=== PATIENT | male | born 1955 | race Caucasian/White ===

== ENCOUNTER 2023-07-10 08:59 | Emergency (ER) | payer MEDICARE, OTHER, SELFPAY ==
[2023-07-10 09:07] VITALS: BP 168/96; PULSE 73; RESP 16; TEMP 37.1; O2SAT 98; BMI 27.1
--- NOTE | 2023-07-10 09:07 | DI.RAD.S_ITS ---
PROCEDURE: XR KNEE LT 3V INDICATIONS: fall TECHNIQUE: 3 views of the knee were acquired. COMPARISON: None. FINDINGS: Bones: No displaced fracture or dislocation. Degenerative changes, particularly at the patellofemoral compartment with lateral patellar tilt. Soft tissues: Possible joint effusion and prepatellar soft tissue swelling. Extensor mechanism enthesopathy. IMPRESSION: No acute displaced fracture or dislocation. Mild degenerative changes. Extensor mechanism enthesopathy. Possible joint effusion and soft tissue swelling in the prepatellar space. Slight lateral patellar tilt. If there is high concern for further derangement, consider MRI evaluation. Dictated by: Paolo García M.D. on 07/10/2023 at 11:00 Approved by: Paolo García M.D. on 07/10/2023 at 11:01
--- NOTE | 2023-07-10 09:07 | DI.RAD.S_ITS ---
PROCEDURE: XR KNEE RT 3V INDICATIONS: fall TECHNIQUE: 3 views of the knee were acquired. COMPARISON: None. FINDINGS: Bones: No dislocation. Mild degenerative changes. A small bone nathen is seen adjacent to the superior patella. Lateral patellar tilt. Soft tissues: Moderate pre patellar swelling. There is also joint effusion. IMPRESSION: Small bone nathen adjacent to the patella located superiorly, possibly an avulsion injury. Prepatellar soft tissue swelling. Joint effusion. There is lateral patellar tilt. If there is high concern for further derangement, consider MRI evaluation. Dictated by: Paolo García M.D. on 07/10/2023 at 10:14 Approved by: Paolo García M.D. on 07/10/2023 at 10:16
--- NOTE | 2023-07-10 09:44 | ED_ITS ---
HPI - Extremity Injury (Lower) General Chief Complaint: Extremity Injury, Lower Stated Complaint: Fall down stairs Time Seen by Provider: 07/10/23 09:10 Source: patient and family Mode of arrival: EMS History of Present Illness HPI Narrative: 68-year-old gentleman with a history of hypertension, no medication, very active with regular running, Pilates and yoga is currently on a cruise [facility] [place] [facility] [place] landing initially on his right knee hyperflexed, when he tried to get up he then landed on the left knee hyperflexed. Presents with significant bilateral knee pain and difficulty walking. He has otherwise been well has no significant complaints. Related Data Previous Rx's Medication Instructions Recorded oxycodone-acetaminophen 5 mg-325 1 tab PO Q6H PRN pain #14 tabs 07/10/23 mg tablet Allergies Allergy/AdvReac Type Severity Reaction Status Date / Time No Known Drug Allergies Allergy Verified 07/10/23 09:32 Review of Systems Review of Systems Narrative: Pertinent positive and negative findings as per HPI Patient History Medical History (Updated 07/10/23 @ 10:47 by Ana Abdullahi MD) Hypertension Social History Smoking Status: Never smoker Smoking Status: Never smoker alcohol intake frequency: holidays/special occasions only Substance Use Type: marijuana Exam Initial Vital Signs Initial Vital Signs: Vital Signs Temperature 98.8 F 07/10/23 09:07 Pulse Rate 73 07/10/23 09:07 Respiratory Rate 16 07/10/23 09:07 Blood Pressure 168/96 H 07/10/23 09:07 Pulse Oximetry 98 07/10/23 09:07 Oxygen Delivery Method Room Air 07/10/23 09:07 General: Alert appropriate in no acute distress Respiratory: Able to speak in full sentences, no obvious respiratory distress Spine, no tenderness. No hip pain Extremities: Both knees with effusions left greater than right. Right appears to be developing a hemarthrosis as well. He is tender over the quadriceps insertions bilaterally seems to have a bit of a defect on the right side that is not reproduced on the left side. Using additional muscles to compensate he is able to stand and once he stands with straight legs he does well, he has not able to flex the legs and take a step secondary to pain. He also feels that his knees are unstable. Because of effusion and pain I am able to do a thorough ligamentous exam however I am not appreciating immediate instability with lateral collateral ligaments or with anterior posterior cruciate ligaments bilaterally Skin: No obvious rashes, warm and dry Neurologic: Grossly intact no obvious asymmetries or abnormalities Psych: appropriate insight and affect, cooperative Bedside musculoskeletal ultrasound: He does appear to have a partial quadriceps insertion tear laterally on the right knee with moderate knee effusion. The quadriceps tendon to the left knee appears to be completely intact. Lesser effusion is appreciated on the left side Course Orders Ordered: ED Orders 07/10/23 09:07 XR knee LT 3V Stat XR knee RT 3V Stat Vital Signs Vital signs: Vital Signs - 8 hr 07/10/23 09:07 Temperature 98.8 F Pulse Rate 73 Respiratory Rate 16 Blood Pressure 168/96 H Pulse Oximetry 98 Oxygen Delivery Method Room Air MDM - Extremity Injury (Lower) MDM Narrative Medical decision making narrative: CC: Fall with bilateral knee pain hypertension Complicating co-morbidities: Data collected from: patient, Social determinants of health that may influence the patients condition: Currently on a cruise ship, they live permanently in [place] Differential considered: Knee fracture, patellar fracture, hemarthrosis, tendon rupture Exam documented above, pertinent findings include: Very healthy-appearing 68-year-old gentleman with bilateral knee effusions right greater than left with developing discoloration suggesting at least partial hemarthrosis in the right. Because he is in essential good physical shape he is able to use multiple other muscles of his upper extremities abdomen and hips to compensate for his knees. He is able to stand but he is unsteady if he needs to bend his knees and take a step forward. Imaging studies independently reviewed: X-rays of the knees bilaterally do not show obvious fractures, effusions or appreciated. Radiology interpretation suggests a small bone nathen adjacent to the patella located superiorly possibly an avulsion injury. This is consistent with suspected partial quadriceps tendon rupture. Bedside ultrasound does suggest a partial quadriceps tendon rupture on the right side. Left side appears completely intact Consultations: Care is reviewed with , orthopedist. He agrees with icing immobilization, crutches and follow up with the orthopedist once patient returns home Treatments: Oral ibuprofen, oral Percocet, knee immobilizer placed Procedure: Right knee immobilizer placed for stability. He is neurovascularly intact pre and postprocedure Discussion: 68-year-old gentleman with a cute fall initially on his right knee with hyperflexion partial quadriceps tendon rupture laterally. Left knee with effusion but no obvious rupture on ultrasound. X-rays do not show fractures. Patient is given a knee immobilizer for the right side. Crutches to use for stability. Talked about the use of ibuprofen, Tylenol, Percocet as well as stoo l softeners. In terms of reporting his ship, they do have elevators and wheelchairs available if needed. At this point I think that he will have some mobility issues and pain issues but likely can still enjoy his cruise if he chooses to continue. He is safe for discharge home Discharge Plan Departure Patient Disposition: Home Clinical Impression: Bilateral knee effusions Traumatic rupture of right quadriceps tendon Qualifiers: Encounter type: initial encounter Qualified Code(s): S76.111A - Strain of right quadriceps muscle, fascia and tendon, initial encounter Strain of left quadriceps Qualifiers: Encounter type: initial encounter Qualified Code(s): S76.112A - Strain of left quadriceps muscle, fascia and tendon, initial encounter Fall down stairs Qualifiers: Encounter type: initial encounter Qualified Code(s): W10.8XXA - Fall (on) (from) other stairs and steps, initial encounter Activity Restrictions/Additional Instructions: Thank you for coming in today You do not have any obvious broken bones With your right knee, you have a partial quadriceps tendon tear and there may be a small nathen of bone that was pulled off the kneecap itself. There is blood as well as serous fluid in the right knee causing effusion. This is going to be painful. Please continue with the knee immobilizer for the right knee for help with both pain and stability. The left knee has an acute strain with effusion but I am not appreciating any tendon abnormalities. With the effusions and pain in both knees I am not able to fully assess the ligaments of the knee itself. Keeping the knees elevated as much as possible, using ice we will be helpful with swelling and pain control. Using 400 mg of ibuprofen (2 [id number] pills) and 1 Tylenol every 6 hours can be very helpful in controlling pain. For severe pain using 400 mg of ibuprofen and 1 Percocet may be needed particularly at night to help with sleep. Percocet is a narcotic, does have addictive potential and will make you constipated. Please make sure you are taking a stool softener as well. When you get back home, you will need follow up with Orthopedic surgery for further evaluation to decide if additional imaging studies are required and to see if you may benefit from physical therapy for more complete resolution of your injuries If you find that you are getting worse or develop any new symptoms, please feel free to return to the emergency department for further evaluation. Prescriptions: New oxycodone-acetaminophen 5-325 mg tablet 1 tab PO Q6H PRN (Reason: pain) Qty: 14 0RF Stand Alone Forms: Patient Portal/API
[2023-07-10] MEDS: OXYCODONE/ACETAMINOPHEN 5/325 TABLET 1 TAB PO (10:49)
[2023-07-10] MEDS: IBUPROFEN 400 MG TABLET PO (10:49)
[2023-07-10 11:13] VITALS: BP 154/83; PULSE 97; RESP 16; TEMP 37.1; O2SAT 97
== END 2023-07-10 11:15 | disposition home or self-care (01) ==
PROVIDERS: Emergency Provider Emergency Medicine
DX: S76.112A Strain of left quadriceps muscle, fascia and tendon, initial encounter (principal); S73.112A Iliofemoral ligament sprain of left hip, initial encounter; W10.8XXA Fall (on) (from) other stairs and steps, initial encounter
CPT/HCPCS: 73562; 99283; 99284